=== PATIENT | male | born 2000 | race Two or more races ===

== ENCOUNTER 2022-06-23 17:38 | Emergency (ER) | payer OTHER ==
[2022-06-23 18:05] VITALS: RESP 18; BMI 26.6
[2022-06-23] MEDS ORDERED: ACETAMINOPHEN 1000 MG/100 ML BAG IVPB ONE (18:21)
[2022-06-23] MEDS ORDERED: SODIUM CHLORIDE 0.9% 500 ML INFUS.BAG IV ONE (18:22)
[2022-06-23] MEDS ORDERED: ACETAMINOPHEN INJECTION 100 ML IVPB ONE (18:31)
[2022-06-23 19:59] VITALS: BP 105/53; PULSE 84; TEMP 100.2
== END 2022-06-23 22:04 | disposition home or self-care (01) ==
LOC: JER 17:38
PROC: 3E033NZ Introduction of Analgesics, Hypnotics, Sedatives into Peripheral Vein, Percutaneous Approach (ICD-10-PCS; principal; 2022-06-23)
DX: B34.9 Viral infection, unspecified (principal)
CPT/HCPCS: 0241U-QW; 99284-25